=== PATIENT | female | born 1970 | race Caucasian/White ===

== ENCOUNTER → 2017-06-11 | Outpatient (CLI) | payer BC ==
[2016-04-30 08:00] VITALS: BP 133/48
[~2017-06-11] MED LIST: CITA20TA9 PO; PANT20TA2 PO
--- NOTE | 2017-06-11 11:46 | RAD ---
Indication right-sided flank pain. A single KUB was obtained. No prior plain film imaging of the abdomen is available. The abdominal gas pattern is normal. There is a density overlying the right transverse process of L5. This likely reflects a bone island. A ureteral calculus cannot be entirely excluded accounting for the appearance. There is disc space narrowing at L4-5. A definite acute finding is not seen in the abdomen on plain films. IMPRESSION: No definite acute finding seen in the abdomen on plain films. If additional imaging evaluation is warranted a CT examination could be performed
== END | disposition home or self-care (01) ==
LOC: MAMMO 10:28
PROVIDERS: ATTEND Obstetrics & Gynecology
DX: Z12.31 Encounter for screening mammogram for malignant neoplasm of breast (principal); Z01.419 Encounter for gynecological examination (general) (routine) without abnormal findings; R10.9 Unspecified abdominal pain
CPT/HCPCS: 74000; G0202; 77067